=== PATIENT | female | born 1965 | race Hispanic/Latino ===

== ENCOUNTER 2018-02-03 08:31 | Outpatient (CLI) | payer OTHER ==
--- NOTE | 2018-02-03 16:19 | Ultrasound Report ---
ABDOMINAL ULTRASOUND: 02/03/18 08:31:00 CLINICAL: Generalized abdominal pain. FINDINGS: High-resolution ultrasound demonstrates a moderately enlarged liver with normal contour and moderate diffuse increased echogenicity. No liver mass identified. Normal hepatic vasculature and inferior vena cava. Normal gallbladder and bile ducts. The gallbladder wall measures 2.0mm. The common bile duct measures 3.0 mm diameter. Normal pancreatic head and proximal body. Most of the pancreatic body and tail are obscured by bowel gas. Normal abdominal aorta. A normal spleen measures 10.7cm. Normal kidneys with normal echogenicity and normal non-dilated renal collecting systems and ureters. The right kidney measures 11.8 x 5.2 x 5.0cm. The left kidney measures 11.6 x 5.5 x 4.4cm. No renal mass or calculus. No ascites or mass. IMPRESSION: 1. Hepatic steatosis and moderate hepatomegaly. 2. Normal biliary tract. 3. No signs of acute or chronic pancreatitis. However, much of the pancreas is obscured by bowel gas on this exam. 4. Normal kidneys.
--- NOTE | 2018-02-03 16:21 | Ultrasound Report ---
TRANSABDOMINAL AND TRANSVAGINAL PELVIC ULTRASOUND: 02/03/18 08:31:00 CLINICAL: Left-sided pain. FINDINGS: Transabdominal and transvaginal pelvic ultrasound demonstrated a normal uterus measuring 7.8 x 5.0 x 5.5 cm. Normal uterine contour and echogenicity.The endometrium mildly thickened and measures 7.0 mm AP thickness. Ovaries are not identified. No adnexal mass or free fluid. Normal urinary bladder. IMPRESSION: 1. Mild endometrial thickening but otherwise normal uterus. 2. Ovaries not imaged. 3. No mass or cyst.
== END 2018-02-03 08:32 | disposition home or self-care (01) ==
LOC: SPVWC 08:31
PROVIDERS: ATTEND Internal Medicine
DX: K76.0 Fatty (change of) liver, not elsewhere classified (principal); R16.0 Hepatomegaly, not elsewhere classified; R93.8 Abnormal findings on diagnostic imaging of other specified body structures
CPT/HCPCS: 76700; 76856

== ENCOUNTER 2018-03-10 12:39 | Outpatient (CLI) | payer OTHER ==
[2018-03-10 13:43] LABS: Blood Urea Nitrogen 17 mg/dL (7-17)
--- NOTE | 2018-03-10 16:37 | Cat Scan Report ---
FINAL REPORT EXAM: CT ABDOMEN PELVIS W CON HISTORY: LEFT LOWER QUADRANT ABDOMINAL TENDERNESS TECHNIQUE: Standard enhanced CT of the abdomen and pelvis. Coronal and sagittal reconstruction was also performed. Delayed imaging through the kidneys and bladder was obtained. Contrast: Intravenous contrast given. PRIORS: None. FINDINGS: Within the abdomen, the liver, spleen, pancreas, gallbladder, adrenal glands, and left kidney are unremarkable. There is a 1 cm hypodense cyst in the upper pole right kidney. No evidence for retroperitoneal or pelvic lymphadenopathy is seen. The bowel loops have normal caliber. No soft tissue mass, fluid collection, inflammatory change, or free air is seen within the abdomen or pelvis. The appendix is normal. Within the pelvis, the bladder is unremarkable. The uterus is normal in size doubt has significant heterogeneity centrally fluid irregular margin around the hypodensity. Pelvic ultrasound is warranted to exclude endometrial abnormality. No evidence for mass or lymphadenopathy is seen in the pelvis. A left inguinal hernia is noted containing only fat. Images through the upper abdomen include the lung bases which are expanded and clear. Bony structures show moderate degenerative disc narrowing L4-L5. IMPRESSION: 1. Abnormal hypodense appearance of the central uterus. Pelvic ultrasound is warranted to exclude endometrial abnormality 2. hypodense focus in the upper pole right kidney consistent with a small cyst. 3. Small left inguinal hernia.
== END 2018-03-10 12:40 | disposition home or self-care (01) ==
LOC: CT 12:39
PROVIDERS: ATTEND Internal Medicine
DX: N83.292 Other ovarian cyst, left side (principal); R16.0 Hepatomegaly, not elsewhere classified; N28.1 Cyst of kidney, acquired; K75.81 Nonalcoholic steatohepatitis (NASH); R93.3 Abnormal findings on diagnostic imaging of other parts of digestive tract; M48.061 Spinal stenosis, lumbar region without neurogenic claudication; K40.90 Unilateral inguinal hernia, without obstruction or gangrene, not specified as recurrent
CPT/HCPCS: 36415; 74177; 82565; 84520; Q9967